=== PATIENT | female | born 1985 | race Caucasian/White ===

== ENCOUNTER 2018-06-04 19:09 | Inpatient (IN) | payer MEDICAID ==
[2018-06-04 20:21] LABS: ADD UMIC NO; UR ASCORBIC ACID NEGATIVE (NEGATIVE); UR BILIRUBIN (Dip) NEGATIVE (NEGATIVE); UR BLOOD (Dip) NEGATIVE (NEGATIVE); UR CLARITY CLEAR (CLEAR); UR COLOR STRAW (YELLOW); UR GLUCOSE (Dip) NEGATIVE (NEGATIVE); UR KETONES (Dip) NEGATIVE (NEGATIVE); UR LEUKOCYTE ESTERASE (Dip) NEGATIVE Leu/ul (NEGATIVE); UR NITRITE (Dip) NEGATIVE (NEGATIVE); UR SPECIFIC GRAVITY (Dip) 1.005 (1.003-1.030); UR TOTAL PROTEIN (Dip) NEGATIVE (NEGATIVE); UR UROBILINOGEN (Dip) NEGATIVE (NEGATIVE)
[2018-06-05] MEDS ORDERED: IBUPROFEN 600 MG TAB PO
[2018-06-05] MEDS ORDERED: BUTORPHANOL 2 MG INJ IV
[2018-06-05] MEDS ORDERED: LIDOCAINE 1% (MPF) 30 ML INJ INJ
[2018-06-05] MEDS: LACTATED RINGER'S 1,000 ML IV* ×3 (00:58→06:33)
[2018-06-05 02:06] LABS: ADD MAN DIFF? NO
[2018-06-05 02:15] LABS: BASOPHILS % 0.3 % (0.0-2.0); EOSINOPHILS % 0.3 % (0.0-7.0); HEMATOCRIT 33.9 % (37.0-47.0); HEMOGLOBIN 11.4 g/dl (12.0-16.0); LYMPHOCYTES # 1.8 10^3/ul (0.8-2.9); LYMPHOCYTES % 15.7 % (15.0-51.0); MEAN CORPUSCULAR HEMOGLOBIN 28.8 pg (29.0-33.0); MEAN CORPUSCULAR HGB CONC 33.6 g/dl (32.0-37.0); MEAN CORPUSCULAR VOLUME 85.6 fl (82.0-101.0); MEAN PLATELET VOLUME 11.6 fl (7.4-10.4); MONOCYTE # 0.8 10^3/ul (0.3-0.9); MONOCYTES % 6.9 % (0.0-11.0); NEUTROPHIL # 8.9 10^3/ul (1.6-7.5); NEUTROPHILS % 76.2 % (39.0-77.0); PLATELET COUNT 173 10^3/UL (140-415); RED BLOOD COUNT 3.96 10^6/ul (4.20-5.40); RED CELL DISTRIBUTION WIDTH 12.2 % (11.5-14.5)
[2018-06-05 02:15] LABS: WHITE BLOOD COUNT 11.7 10^3/ul (4.8-10.8)
[2018-06-05] MEDS: LIDOCAINE 0.5% (SDV) 50 ML INJ INFIL (02:30)
[2018-06-05 02:38] LABS: INR 0.93; PARTIAL THROMBOPLASTIN TIME 28.6 Sec (23.0-35.0); PROTIME 12.5 Sec (11.9-14.9)
[2018-06-05] MEDS: OXYTOCIN 30 UNITS/LR 500 ML IV ×2 (02:40→10:09)
[2018-06-05 03:35] LABS: HEPATITIS B SURFACE ANTIGEN NEGATIVE (NEGATIVE)
[2018-06-05] MEDS: LACTATED RINGER'S 1,000 ML IV (05:18)
[2018-06-05] MEDS ORDERED: FENTAnyl 2MCG/ML-ROPIV 0.2% 100 ML (05:56)
[2018-06-05] MEDS ORDERED: FENTAnyl 2MCG/ML-ROPIV 0.2% 100 ML BAG EPI (06:00)
[2018-06-05] MEDS ORDERED: NALOXONE (0.4 MG/ML) INJ IV (06:00)
[2018-06-05] MEDS: MINERAL OIL LIGHT 10 ML VIAL TOP (10:36)
[2018-06-05] MEDS ORDERED: OXYTOCIN 30 UNITS/LR 500 ML IV ×2 (12:00)
[2018-06-05] MEDS ORDERED: MISOPROSTOL 200 MCG TAB PR ×2 (12:00)
[2018-06-05] MEDS ORDERED: ZOLPIDEM 5 MG TAB PO (12:00)
[2018-06-05] MEDS ORDERED: OXYCODONE/ASPIRIN (4.88/325) TAB PO (12:00)
[2018-06-05] MEDS ORDERED: METHYLERGONOVINE 0.2 MG INJ IM ×2 (12:00)
[2018-06-05] MEDS ORDERED: CARBOPROST 250 MCG INJ IM ×2 (12:00)
[2018-06-05] MEDS: BENZOCAINE 20% 56 ML SPRAY TOP (12:29)
[2018-06-05] MEDS: IBUPROFEN 600 MG TAB PO ×2 (12:29→18:00)
[2018-06-05] MEDS: LANOLIN 7 GM TUBE TOP (12:30)
[2018-06-05] MEDS: WITCH HAZEL/GLYCERIN PAD PR (12:30)
[2018-06-05 19:28] LABS: RAPID PLASMA REAGIN NONREACTIVE (NR)
[2018-06-05] MEDS: SENNA/DOCUSATE NA (8.6MG/50MG) TAB PO (21:19)
[2018-06-06] MEDS: IBUPROFEN 600 MG TAB PO ×5 (05:32→23:30)
[2018-06-06 07:59] LABS: ADD MAN DIFF? NO
[2018-06-06 08:02] LABS: WHITE BLOOD COUNT 13.6 10^3/ul (4.8-10.8)
[2018-06-06 08:02] LABS: BASOPHILS % 0.2 % (0.0-2.0); EOSINOPHILS # 0.1 10^3/ul (0.0-0.5); EOSINOPHILS % 0.6 % (0.0-7.0); HEMATOCRIT 34.6 % (37.0-47.0); HEMOGLOBIN 11.4 g/dl (12.0-16.0); LYMPHOCYTES # 1.9 10^3/ul (0.8-2.9); LYMPHOCYTES % 14.1 % (15.0-51.0); MEAN CORPUSCULAR HEMOGLOBIN 28.6 pg (29.0-33.0); MEAN CORPUSCULAR HGB CONC 32.9 g/dl (32.0-37.0); MEAN CORPUSCULAR VOLUME 86.9 fl (82.0-101.0); MEAN PLATELET VOLUME 11.6 fl (7.4-10.4); MONOCYTE # 0.8 10^3/ul (0.3-0.9); MONOCYTES % 6.1 % (0.0-11.0); NEUTROPHIL # 10.6 10^3/ul (1.6-7.5); NEUTROPHILS % 78.4 % (39.0-77.0); PLATELET COUNT 154 10^3/UL (140-415); RED BLOOD COUNT 3.98 10^6/ul (4.20-5.40); RED CELL DISTRIBUTION WIDTH 12.3 % (11.5-14.5)
[2018-06-06] MEDS: SENNA/DOCUSATE NA (8.6MG/50MG) TAB PO ×2 (10:00→20:36)
[2018-06-06] MEDS: OXYCODONE/ASPIRIN (4.88/325) TAB PO (20:36)
[2018-06-07] MEDS: IBUPROFEN 600 MG TAB PO ×2 (05:39→12:24)
[2018-06-07] MEDS: DIPHTH/TET/ACEL PERTUSS (ADULT) 0.5 ML VIAL IM* (09:11)
[2018-06-07] MEDS: SENNA/DOCUSATE NA (8.6MG/50MG) TAB PO (09:12)
[2018-06-07] MEDS: INFLUENZA VIRUS VACCINE 0.5 ML (DISPENSING) IM* (13:17)
== END 2018-06-07 13:45 | disposition home or self-care (01) | DRG 807 ==
LOC: OBT 19:09 → L-D 19:10 → PP1 06-05 11:30
PROC: 10E0XZZ Delivery of Products of Conception, External Approach (ICD-10-PCS; principal; 2018-06-05)
PROC: 0HQ9XZZ Repair Perineum Skin, External Approach (ICD-10-PCS; 2018-06-05)
DX: O36.8130 Decreased fetal movements, third trimester, not applicable or unspecified (principal); Z37.0 Single live birth; O76 Abnormality in fetal heart rate and rhythm complicating labor and delivery; O69.81X0 Labor and delivery complicated by cord around neck, without compression, not applicable or unspecified; O70.9 Perineal laceration during delivery, unspecified; Z3A.39 39 weeks gestation of pregnancy; Z23 Encounter for immunization
CPT/HCPCS: 36415; 62319; 76815; 76818; 81003; 85025; 85610; 85730; 86592; 86850; 86900; 86901; 87340; 90686; 90715